=== PATIENT | male | born 1990 | race Caucasian/White ===

== ENCOUNTER 2016-11-25 08:57 | Emergency (ER) | payer BC, OTHER ==
[~2016-11-25] VITALS: Ht 182.9 cm; Wt 97.5 kg
[2016-11-25] MEDS ORDERED: SIME125T50 PO (09:39)
[2016-11-25] MEDS ORDERED: AMPH20TA2 PO (09:39)
--- NOTE | 2016-11-25 11:04 | ED Neck-Back Pain/Injury ---
General Chief Complaint: Head/Cervical Problems Stated Complaint: NECK PAIN Nursing Triage Note: PT CO OF NECK PAIN, PT STATES HAS HAD STIFF NECK FOR A FEW DAYS, JUMPED OFF TRUCK AND FELT LIKE GOT WHIPLASH, PT WEARING SOFT C-COLLAR STATES BOUGHT D/T NECK PAIN Nursing Sepsis Screen: No Definite Risk Source of Information: Patient Exam Limitations: No Limitations History of Present Illness Time Seen by Provider: 10:59 Initial Comments The patient is a 25-year-old white male who reports that he had the sensation of a stiff neck particularly to turning of the head. This began several days ago he then later jumped down out of the bed of a pickup and felt that he had a whiplash kind of movement of his neck. This caused the acute and bothersome tingling in the arms and legs. He noted this tingling sensation in his neck and if he were to stepdown hard particularly with his left leg. The pain in the neck was most acute on the right side. He bought a neck collar over-the- counter and has found it to be helpful. He took 600 mg of ibuprofen this morning and got some relief. He is loathe to continue this as he has previously had a fundoplication for GERD and was told by the surgeon to avoid NSAIDs. There is no previous history of neck pain or previous injury Location: C-Spine, Paraspinous Muscles Timing/Duration: 3-4 Days Severity: Moderate Pain/Injury Location: Lower Extremity, Upper Extremity Method of Injury: Unknown Allergies and Home Medications Allergies Coded Allergies: No Known Drug Allergies (Unverified , 11/25/16) Home Medications Dextroamphetamine/Amphetamine 20 Mg Tablet, 20 MG PO DAILY, (Reported) Simethicone 125 Mg Tab.chew, 125 MG PO, (Reported) Constitutional: see HPI EENTM: no symptoms reported Respiratory: no symptoms reported Cardiovascular: no symptoms reported Gastrointestinal: no symptoms reported Genitourinary: no symptoms reported Musculoskeletal: no symptoms reported Psychiatric/Neurological: See HPI Past Pafrdjf-Rzmvjy-Lvoeso Hx Patient Social History Alcohol Use: Denies Use Recreational Drug Use: No Smoking Status: Never a Smoker Recent Foreign Travel: No Contact w/Someone Who Travel: No Recent Infectious Disease Expo: No Recent Hopitalizations: No Physical Exam Vital Signs Vital Sign - Last 12Hours 11/25/16 09:20 Temp 97.4 Pulse 71 Resp 18 B/P (MAP) 130/81 Pulse Ox 99 Capillary Refill : Less Than 3 Seconds General Appearance: Mild Distress HEENT: Normal ENT Inspection Neck: Tender Lateral (right) Cardiovascular: Regular Rate, Rhythm, No Edema, No Gallop, No JVD, No Murmur, Normal Peripheral Pulses Respiratory: Chest Non Tender, Lungs Clear, Normal Breath Sounds, No Accessory Muscle Use, No Respiratory Distress, Accessory Muscle Use Gastrointestinal: Normal Bowel Sounds, No Organomegaly, No Pulsatile Mass, Non Tender, Soft Extremity: Normal Capillary Refill, Normal Inspection, Normal Range of Motion, Non Tender, No Calf Tenderness, No Pedal Edema, Calf Tenderness Neurologic/Psychiatric: Alert, Oriented x3, No Motor/Sensory Deficits, Normal Mood/Affect, shift mechanic II-XII Norm as Tested, Abnormal Cerebellar Tests, Other Skin: Normal Color, Warm/Dry, Cool, Cyanosis Lymphatic: No Adenopathy, Axilla Node Tender (L), Axilla Node Tender (R) Progress/Results/Core Measures Results/Orders Vital Signs/I&O Vital Sign - Last 12Hours 11/25/16 09:20 Temp 97.4 Pulse 71 Resp 18 B/P (MAP) 130/81 Pulse Ox 99 Blood Pressure Mean: 97 Departure Impression Impression: Primary Impression: cervical radiculopathy Disposition: HOME, SELF-CARE Condition: Stable/Unchanged Departure-Patient Inst. Decision time for Depature: 11:04 Referrals: NO,LOCAL PHYSICIAN (PCP) Primary Care Physician Add. Discharge Instructions: All discharge instructions reviewed with patient and/or family. Voiced understanding. Sleep with head in neutral position as demonstrated. Continue use of collar. Use heat 3 times a day. If no improvement by Saturday SEE local physician. If increasing symptoms return to emergency room. Take ibuprofen 600 mg 3 times a day for a few days Take Flexeril as directed. Scripts [fLEXERIL] No Conflict Check 10 MG TWICE A DAY, #20 Prov: NALLELY PYLE MD 11/25/16 NALLELY PYLE MD Nov 25, 2016 11:04
[2016-11-25] MEDS ORDERED: fLEXERIL (11:08)
[2016-11-25] MEDS ORDERED: methylPREDNISolone 125 MG (Solu-MEDROL) VIAL IM ONE (11:15)
[2016-11-25 11:36] VITALS: BP 130/81
== END 2016-11-25 11:40 | disposition home or self-care (01) ==
LOC: EDUNIT# 08:57 → ER 08:59
DX: M54.12 Radiculopathy, cervical region (principal)
CPT/HCPCS: 96372; 99284

== ENCOUNTER → 2018-08-25 | Outpatient (CLI) | payer OTHER ==
[~2018-08-25] MED LIST: AMPH20TA2 PO; SIME125T50 PO; fLEXERIL
--- NOTE | 2018-08-25 09:34 | Diagnostic Imaging Report ---
INDICATION: Neck pain with left radiculopathy Cervical spine AP and lateral views of the cervical spine show normal vertebral body height and alignment. Disc spaces are normal. There is no prevertebral soft tissue swelling. IMPRESSION: Negative cervical spine Dictated by: Dictated on workstation # [id number]
== END ==
LOC: RAD 08:35
PROVIDERS: ATTEND Nurse Practitioner
DX: M50.10 Cervical disc disorder with radiculopathy, unspecified cervical region (principal)
CPT/HCPCS: 72040

== ENCOUNTER → 2018-10-16 | Outpatient (CLI) | payer OTHER ==
--- NOTE | 2018-10-16 14:45 | Diagnostic Imaging Report ---
EXAMINATION: Left tibia and fibula at 1:23 p.m. INDICATION: Leg pain. FINDINGS: AP and lateral views were obtained. There are no prior studies available for comparison. There is no fracture, dislocation or acute bony abnormality evident. The knee and ankle joints are fairly well-maintained. The soft tissues are unremarkable. IMPRESSION: There is no evidence for an acute bony abnormality. Dictated by: Dictated on workstation # [id number]
== END ==
LOC: RAD 13:09
PROVIDERS: ATTEND Nurse Practitioner
DX: M79.662 Pain in left lower leg (principal)
CPT/HCPCS: 73590

== ENCOUNTER → 2018-12-12 | Outpatient (CLI) | payer OTHER ==
--- NOTE | 2018-12-12 08:09 | Diagnostic Imaging Report ---
PROCEDURE: CT chest without contrast. TECHNIQUE: Multiple contiguous axial images were obtained through the chest without the use of intravenous contrast. Auto Exposure Controls were utilized during the CT exam to meet ALARA standards for radiation dose reduction. INDICATION: Followup pulmonary nodule. Currently asymptomatic. COMPARISON: None provided. FINDINGS: The heart size is within normal limits. No pericardial effusion is present. There is no mediastinal, hilar, or axillary lymphadenopathy. The lungs demonstrate no pulmonary nodules or masses. There are no focal areas of consolidation. No pneumothoraces are present. No central endobronchial obstructing lesions are identified. There are no pleural effusions. The osseous structures demonstrate no acute abnormalities. Bilateral gynecomastia is noted. Limited views of the upper abdominal structures demonstrate no acute abnormalities. Both adrenal glands are unremarkable. IMPRESSION: 1. No pulmonary nodules, focal consolidation, or lymphadenopathy in the chest. Dictated by: Dictated on workstation # [id number]
== END ==
LOC: RAD 07:33
PROVIDERS: ATTEND Nurse Practitioner
DX: Z01.89 Encounter for other specified special examinations (principal); R91.1 Solitary pulmonary nodule
CPT/HCPCS: 71250

== ENCOUNTER 2019-01-07 20:47 | Outpatient (CLI) | payer OTHER | END 2019-01-08 06:54 | disposition home or self-care (01) | LOC: SLEEP 20:47 | PROVIDERS: ATTEND Otolaryngology Otolaryngology/Facial Plastic Surgery | DX: G47.33 Obstructive sleep apnea (adult) (pediatric) (principal) | CPT/HCPCS: 95810 ==

== ENCOUNTER 2019-09-08 21:28 | Emergency (ER) | payer OTHER ==
[~2019-09-08] VITALS: Ht 182.9 cm; Wt 109.1 kg
[2019-09-08 21:35] VITALS: BP 142/93
--- OUTSIDE RECORDS SUMMARY | 2019-09-08 21:57 | XMS REPORT | Clinical Summary ---
Author Author [facility] Address Unknown Phone Unavailable Care Team Providers Care Restaurant Team Member Name Role Phone PCP Unavailable Allergies Not on File Medications Not on file Active Problems Not on file Social History Date Tobacco Use Types Packs/Day Years Used Never Assessed Sex Assigned at Date Recorded Not on file Industry Job Start Date Occupation Not on file Not on file Not on file Travel End Travel History Travel Start No recent travel history available. Last Filed Vital Signs Not on file Plan of Treatment Health Maintenance Due Date Last Done Comments Varicella Vaccines (1 of 1989 2 - 2-dose childhood series) DTaP,Tdap,and Td Vaccines 01/01/2008 (1 - Tdap) MMR Vaccines-Adult 01/01/2008 Influenza Vaccine (Season 01/05/2020 Ended) Pneumo-Vaccine: Peds (0-5 Aged Out No longer el igible based on patient's age to Yrs) & At-Risk Patients complete this topic (6-64 Yrs) Results Not on filefrom Last 3 Months
--- OUTSIDE RECORDS SUMMARY | 2019-09-08 21:57 | XMS REPORT | Continuity of Care Document ---
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 [employer] ESOPHAGEAL REFLUX [facility] [employer] Medical Medications No Data Provided for This Section Allergies, Adverse Reactions, Alerts No Known Medication Allergies Immunizations No Data Provided for This Section Results No Data Provided for This Section Pathology Reports No Data Provided for This Section Diagnostic Reports Report Value Date Source XR Sinus Min 3V [address] [address] Radiology Reports CPT Codes; 42556 CDM Codes: 1533165 (XR Sinus Min 3V) Reason for exam: DEVIATED SEPTUM Report SINUS SERIES, 3 views CLINICAL DATA: Congestion. Prior septal surgery. FINDINGS: The paranasal sinuses are well aerated. No mucosal thickening or fluid levels are seen. The nasal septum remains midline. IMPRESSION: Negative study. Dictating Moshe Alvarado Dictated 12/25/2013 10:28 Signing Moshe Alvarado Location [id number] Final Dictated by: MOSHE NICHOLAS MD Signed by: MOSHE NICHOLAS MD 12/25/13 10:29 Court Commissioner: SOREN 12/25/13 10:29 LUZMARIA YORK [id number] 12/25/2013 [facility] R2G Consultation Notes No Data Provided for This Section Discharge Summaries No Data Provided for This Section History and Physicals No Data Provided for This Section Vital Signs No Data Provided for This Section Encounters Location Location Details Encounter Type Encounter Number Reason For Visit Attending Provider ADM Date DC Date Status Source [id number] O [id number] DEVIATED SEPTUM 12/25/2013 12/25/2013 [facility] [place] [facility] Procedures No Data Provided for This Section Plan of Care No Data Provided for This Section Social History No Data Provided for This Section Assessment and Plan No Data Provided for This Section Family History No Data Provided for This Section Advance Directives No Data Provided for This Section Functional Status No Data Provided for This Section
--- OUTSIDE RECORDS SUMMARY | 2019-09-08 21:57 | XMS REPORT ---
Author Author [employer] [facility] [employer] [facility] [employer] Address [address] [address] Care Team Providers Care Corporate Strategy Intern Name Role Phone NALLELY PYLE MD Unavailable Unavailable JOHN MALIK DO Unavailable Unavailable PAYAL VALENCIA DIPPER CLOCK AND WATCH HANDS-MANAGER OF CUSTOMER BILLING Unavailable Unavailable NALLELY PYLE MD Unavailable Unavailable NO, LOCAL PHYSICIAN PCP Unavailable Unavailable Unavailable LUIS THOMAS MD Unavailable Unavailable JOHN MALIK DO Unavailable Unavailable Unavailable Unavailable Unavailable Unavailable Unavailable Unavailable Allergies Normalized Allergy Reported Date of Reaction(s) Care Provider Facility Allergy Type classification allergen Allergy Onset DA (14 Unclassified No Known Drug 11-25-2016 - no information JOHN MALIK DO Not Available sources.) Allergies (19093) Medications Medication Ingredient Drug Dose Dates Status Sig Sig Care Class(es) (Normalized) (Original) Provid er amphetamine Amphetamine Central 20 mg Complete take 1 Dextroamph et (no aspartate 5 aspartate / Nervous d tablet by amine/Amphe t phone) mg / Amphetamine System mouth once amine amphetamine Sulfate / Stimulant daily (Adderall 20 sulfate 5 Dextroamphe Mg Tablet) mg / tamine 20 Mg Tablet dextroamphe saccharate 20 Mg ORAL tamine / Daily saccharate Dextroamphe 5 mg / tamine dextroamphe Sulfate tamine sulfate 5 mg oral tablet (1 source.) no cyclobenzap Muscle 10 mg 11-26-19 Complete no Flexer il 10 Nallely information rine Relaxant 17 d information Mg NOT K (1 source.) APPLICABLE [place] Twice A Day (no 20 11/25/16 phone) no Simethicone no 125 mg Complete no Simethicone (n o information 125 Mg information d information 125 Mg phone) (1 source.) Tab.chew Tab.chew 125 Mg ORAL Problems Active Problems Problem Normalized Date Last Normalized Normalized Provider Fa cility Classification Problem(s) Recorded Problem Problem Sta tus Duration Spondylosis; Cervical disc Chronic Active PAYAL BOGE [facility] intervertebral disorder with [facility] disc radiculopathy, Hospital - disorders; unspecified [place] other back cervical (54785) problems (1 region source.) Spondylosis; Cervicalgia Episodic Active NALLELY ODGERS Not Available intervertebral Translations: MD (53506) disc [ disorders; RADICULOPATHY, other back CERVICAL problems (20 REGION, sources.) CERVICAL DISC DISORDER W RADICULOPATHY, , RADICULOPATHY, CERVICAL REGION] Residual Obstructive Chronic Active LUIS THOMAS [facility] a codes; sleep apnea MD [place] unclassified (adult) Hospital - (4 sources.) (pediatric) [place] ([address]) Other Pain in left Episodic Active PAYAL BOGE [facility] connective lower leg [facility] tissue disease Hospital - (3 sources.) [place] ([address]) Residual Procedure and Episodic Active JOHN KING , DO [facility] Via codes; treatment not [facility] unclassified carried out Hospital - (6 sources.) due to patient [place] leaving prior ([address]857) to being seen by health care provider Other lower Solitary Episodic Active PAYAL BOGE [facility] respiratory pulmonary [facility] disease (7 nodule Hospital - sources.) [place] ([address]) Nausea and Vomiting, Episodic Active JOHN KING , DO [facility] Vi a vomiting (4 unspecified [facility] sources.) Hospital - [place] ([address]) Past or Other Problems Problem Normalized Date Last Normalized Normalized Provider Fa ferty Classification Problem(s) Recorded Problem Problem Sta tus Duration Nausea and Vomiting, no information no information JOHN KING , DO Not Available vomiting (8 unspecified (34049) sources.) Procedures Procedure Normalized Procedure Procedure Result Performer Facility Date 12-12-2018 CT of chest without no information PAYAL GARNER-FN Thais VALENCIA [facility] ([address]) Immunizations Normalized Immunization Date Notes Care Provider Facili ty Immunization influenza, seasonal, 02-16-2019 no information no name Nilson krueger [facility] injectable [facility] (77189) Vaccination no information LOCAL NO [place] Via Translations: [ [facility] vaccine] (480[address]) Results The data below is from unstructured sourcesNo relevant diagnostic test, laboratory data and/or discharge summary information available. Vital Signs The data below is from unstructured sourcesNo vital sign information available. Interventions No Information Plan of Treatment The data below is from unstructured sources Discharge Date 01/08/19 6:54am Prescriptions See Medication Section Goals No Information Social History Normalized Code Original Code Date Value no information no information no information Unknown if ever smoked Functional Status The data below is from unstructured sourcesNo functional status information available. Mental Status No Information Encounters Encounter Normalized Encounter Encounter Diagnosis Care Provi jil Organization Date Type 11-25-2016 Emergency department no information no name no organization name - patient visit 11-25-2016 11-25-2016 Emergency department no information NALLELY PYLE MD (no [facility] - patient visit phone) [facility] 11-25-2016 (no phone) 01-24-2016 Emergency department no information no name no organization name patient visit 01-24-2016 Emergency department no information no name no organization name patient visit 11-25-2016 Patient encounter no information no name no or ganization name 01-07-2019 Patient encounter no information LIUS THOMAS Wo rk no organization name - procedure Phone: 01-08-2019 01-07-2019 Patient encounter no information LUIS THOMAS MD (no [facility] - procedure phone) [facility] 01-08-2019 (no phone) 12-12-2018 Patient encounter no information PAYAL FREEMANP ERIK no organization name procedure 12-12-2018 Patient encounter no information no name no or ganization name procedure 10-16-2018 Patient encounter no information no name no or ganization name procedure 08-25-2018 Patient encounter no information no name no or ganization name procedure 08-25-2018 Patient encounter no information no name no or ganization name procedure no information Encounter for other no name no organiz ation name specified special examinations Medical Equipment No Information Payers Normalized Payer Value Private Health Insurance [id number] NEGATED [id number] Private Health Insurance Unknown [id number] ([id number]) Advance Directives Directive Response Recor ded Date/Time Advance Directives No 9:20am Organ Donor Yes 11/25/16 9:20am Discharge Instructions No hospital discharge instruction information available. Additional Source Comments This clinical document has been generated using [employer] software that has been certified by the Office of the National Coordinator for Health Information Technology (ONC 15.99.04.3023.Diam.31.00.0.480673) and the National Committee for [employer] Cook (NCQA, as an eMeasure certified technology). FOR RECORDS PERTAINING TO PATIENTS WHO ARE OR HAVE BEEN ENROLLED IN A CHEMICAL D EPENDENCY/SUBSTANCE ABUSE PROGRAM, SOME INFORMATION MAY BE OMITTED. This clinica l summary was aggregated from multiple sources. Caution should be exercised in using it in the provision of clinical care. This summary normalizes information from multiple sources, and as a consequence, information in this document may ma terially change the coding, format and clinical context of patient data. In dennis tion, data may be omitted in some cases. CLINICAL DECISIONS SHOULD BE BASED ON T HE PRIMARY CLINICAL RECORDS. [employer]. provides no warranty or guara ntee of the accuracy or completeness of information in this document.The followi information is based on time limited clinical information
--- OUTSIDE RECORDS SUMMARY | 2019-09-08 21:57 | XMS REPORT | Continuity of Care Document ---
Author Organization Unknown Address Unknown Phone Unavailable Allergies Active Description Code Type Severity Reaction Onset Reported/Identified Relationship to Patient Clinical Status Yes No Known Drug Allergies [id number] Drug Allergy Unknown N/A 11/25/2016 Medications There is no data. Problems Date Dx Coded Attending Type Code Diagnosis Diagnosed By 01/25/2016 JOHN MALIK DO Ot R11.10 VOMITING, UNSPECIFIED 01/25/2016 JOHN MALIK DO Ot Z53.21 PROC/TRTMT NOT CRD OUT D/T PT LV BEF SEE 01/25/2016 JOHN MALIK DO Ot R11.10 VOMITING, UNSPECIFIED 01/25/2016 ROGER MALIK DOA Basilio Ot Z53.21 PROC/TRTMT NOT CRD OUT D/T PT LV BEF SEE 11/25/2016 JOHN MALIK DO Ot R11.10 VOMITING, UNSPECIFIED 11/25/2016 ROGER MALIK DOA Basilio Ot Z53.21 PROC/TRTMT NOT CRD OUT D/T PT LV BEF SEE 11/25/2016 NALLELY PYLE MD Ot M54.12 RADICULOPATHY, CERVICAL REGION 11/25/2016 NALLELY PYLE MD Ot M54 .2 CERVICALGIA 11/25/2016 JOHN MALIK DO Ot R11.10 VOMITING, UNSPECIFIED 11/25/2016 ROGER MALIK DOA Basilio Ot Z53.21 PROC/TRTMT NOT CRD OUT D/T PT LV BEF SEE 11/26/2016 JOHN MALIK DO Ot R11.10 VOMITING, UNSPECIFIED 11/26/2016 ROGER MALIK DOA Basilio Ot Z53.21 PROC/TRTMT NOT CRD OUT D/T PT LV BEF SEE 11/27/2016 NALLELY PYLE MD Ot M54.12 RADICULOPATHY, CERVICAL REGION 11/27/2016 NALLELY PYLE MD Ot M54 .2 CERVICALGIA 10/25/2017 NALLELY PYLE MD Ot M54.12 RADICULOPATHY, CERVICAL REGION 10/25/2017 NALLELY PYLE MD Ot M54 .2 CERVICALGIA 08/25/2018 ROGER MALIK DOSha [place] Ot R11.10 VOMITING, UNSPECIFIED 08/25/2018 ROGER MALIK DOA K Ot Z53.21 PROC/TRTMT NOT CRD OUT D/T PT LV BEF SEE 08/31/2018 PAYAL VALENCIA CENTRIFUGAL CASTING MACHINE OPERATOR-SENIOR NET DEVELOPER ARCHITECT Ot M50.10 CERVICAL DISC DISORDER W RADICULOPATHY, 09/18/2018 NALLELY PYLE MD Ot M54.12 RADICULOPATHY, CERVICAL REGION 09/18/2018 NALLELY PYLE MD Ot M54 .2 CERVICALGIA 10/19/2018 PAYAL VALENCIA CENTRIFUGAL CASTING MACHINE OPERATOR-SENIOR NET DEVELOPER ARCHITECT Ot M79.662 PAIN IN LEFT LOWER LEG 11/20/2018 NALLELY PYLE MD Ot M54.12 RADICULOPATHY, CERVICAL REGION 11/20/2018 NALLELY PYLE MD Ot M54 .2 CERVICALGIA 12/17/2018 PAYAL VALENCIA CENTRIFUGAL CASTING MACHINE OPERATOR-SENIOR NET DEVELOPER ARCHITECT Ot R91.1 SOLITARY PULMONARY NODULE 12/17/2018 PAYAL VALENCIA CENTRIFUGAL CASTING MACHINE OPERATOR-SENIOR NET DEVELOPER ARCHITECT Ot Z01.89 ENCOUNTER FOR OTHER SPECIFIED SPECIAL EX 12/19/2018 PAYAL VALENCIA CENTRIFUGAL CASTING MACHINE OPERATOR-SENIOR NET DEVELOPER ARCHITECT Ot R91.1 SOLITARY PULMONARY NODULE 12/19/2018 PAYAL VALENCIA CENTRIFUGAL CASTING MACHINE OPERATOR-SENIOR NET DEVELOPER ARCHITECT Ot Z01.89 ENCOUNTER FOR OTHER SPECIFIED SPECIAL EX 01/08/2019 LUIS THOMAS MD Ot G47.33 OBSTRUCTIVE SLEEP APNEA (ADULT) (PEDIATR 01/09/2019 LUIS THOMAS MD Ot G47.33 OBSTRUCTIVE SLEEP APNEA (ADULT) (PEDIATR 04/30/2019 PAYAL VALENCIA CENTRIFUGAL CASTING MACHINE OPERATOR-SENIOR NET DEVELOPER ARCHITECT Ot M79.662 PAIN IN LEFT LOWER LEG 05/26/2019 JOHN MALIK DO Basilio Ot R11.10 VOMITING, UNSPECIFIED 05/26/2019 KING ARZOLA JOHN K Ot Z53.21 PROC/TRTMT NOT CRD OUT D/T PT LV BEF SEE 05/26/2019 PAYAL VALENCIA CENTRIFUGAL CASTING MACHINE OPERATOR-SENIOR NET DEVELOPER ARCHITECT Ot R91.1 SOLITARY PULMONARY NODULE 05/26/2019 PAYAL VALENCIA CENTRIFUGAL CASTING MACHINE OPERATOR-SENIOR NET DEVELOPER ARCHITECT Ot Z01.89 ENCOUNTER FOR OTHER SPECIFIED SPECIAL EX 05/26/2019 PAYAL VALENCIA CENTRIFUGAL CASTING MACHINE OPERATOR-SENIOR NET DEVELOPER ARCHITECT Ot R91.1 SOLITARY PULMONARY NODULE 05/26/2019 PAYAL VALENCIA CENTRIFUGAL CASTING MACHINE OPERATOR-SENIOR NET DEVELOPER ARCHITECT Ot Z01.89 ENCOUNTER FOR OTHER SPECIFIED SPECIAL EX 05/27/2019 PAYAL VALENCIA CENTRIFUGAL CASTING MACHINE OPERATOR-SENIOR NET DEVELOPER ARCHITECT Ot R91.1 SOLITARY PULMONARY NODULE 05/27/2019 PAYAL VALENCIA CENTRIFUGAL CASTING MACHINE OPERATOR-SENIOR NET DEVELOPER ARCHITECT Ot Z01.89 ENCOUNTER FOR OTHER SPECIFIED SPECIAL EX 05/27/2019 KING DO, JOHN K Ot R11.10 VOMITING, UNSPECIFIED 05/27/2019 KING DO, JOHN K Ot Z53.21 PROC/TRTMT NOT CRD OUT D/T PT LV BEF SEE 05/27/2019 PAYAL VALENCIA CENTRIFUGAL CASTING MACHINE OPERATOR-SENIOR NET DEVELOPER ARCHITECT Ot M50.10 CERVICAL DISC DISORDER W RADICULOPATHY, 05/27/2019 PAYAL VALENCIA CENTRIFUGAL CASTING MACHINE OPERATOR-SENIOR NET DEVELOPER ARCHITECT Ot M79.662 PAIN IN LEFT LOWER LEG 05/27/2019 PAYAL VALENCIA CENTRIFUGAL CASTING MACHINE OPERATOR-SENIOR NET DEVELOPER ARCHITECT Ot R91.1 SOLITARY PULMONARY NODULE 05/27/2019 PAYAL VALENCIA CENTRIFUGAL CASTING MACHINE OPERATOR-SENIOR NET DEVELOPER ARCHITECT Ot Z01.89 ENCOUNTER FOR OTHER SPECIFIED SPECIAL EX 05/27/2019 PAYAL VALENCIA CENTRIFUGAL CASTING MACHINE OPERATOR-SENIOR NET DEVELOPER ARCHITECT Ot R91.1 SOLITARY PULMONARY NODULE 05/27/2019 PAYAL VALENCIA CENTRIFUGAL CASTING MACHINE OPERATOR-SENIOR NET DEVELOPER ARCHITECT Ot Z01.89 ENCOUNTER FOR OTHER SPECIFIED SPECIAL EX Procedures There is no data. Results There is no data. Encounters ACCT No. Visit Date/Time Discharge Status Pt. Type Provider Facility Loc./Unit Complaint [id number] 01/07/2019 20:47:00 019 06:54:00 DIS Outpatient WILLIAM DONALD, LUIS Plascencia [facility] SLEEP G47.33 ALENA [id number] 12/12/2018 07:33:00 019 23:59:59 CLS Outpatient PAYAL VALENCIA CENTRIFUGAL CASTING MACHINE OPERATOR-SENIOR NET DEVELOPER ARCHITECT [facility] RAD PULMONARY NODUL E [id number] 10/16/2018 13:09:00 019 23:59:59 CLS Outpatient PAYAL VALENCIA CENTRIFUGAL CASTING MACHINE OPERATOR-SENIOR NET DEVELOPER ARCHITECT [facility] RAD LEFT ANTERIOR L OWER LEG PAIN [id number] 08/25/2018 08:35:00 019 23:59:59 CLS Outpatient ERIKPYAAL CENTRIFUGAL CASTING MACHINE OPERATOR-SENIOR NET DEVELOPER ARCHITECT [facility] RAD M50.90 [id number] 11/25/2016 08:59:00 017 11:40:00 DIS Emergency LASHANDA DONALD, NALLELY [place] [facility] ER NECK PAIN [id number] 01/24/2016 19:55:00 016 23:59:59 CLS Emergency JOHN MALIK DO [facility] ER VOMITING/ABD PAIN [id number] 05/26/2019 07:16:00 Document Registration [id number] 05/26/2019 07:16:00 Document Registration [id number] 05/26/2019 07:16:00 Document Registration [id number] 05/26/2019 07:16:00 Document Registration [id number] 05/26/2019 07:16:00 Document Registration
--- NOTE | 2019-09-08 22:25 | NUR ---
X9 sutures placed by Chip Yoon APRN. Addendum: 09/08/19 at 2225 by COLEMAN 4-0 Prolene.
--- NOTE | 2019-09-08 22:28 | ED Upper Extremity ---
General Chief Complaint: Laceration Stated Complaint: L ARM LAC Nursing Triage Note: Pt amb to triage with c/o laceration to L upper arm. 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 Pt arrives with pressure drsg to L upper arm with controlled bleeding. Superficial abrasions noted to Ema cantu et pt states, "I'm not worried about those, that happened earlier today." Pt reports to be current on tetanus vaccine. A&OX4. Nursing Sepsis Screen: No Definite Risk Source: patient Exam Limitations: no limitations History of Present Illness Date Seen by Provider: September 08, 2019 Time Seen by Provider: 22:00 Initial Comments Lacerations to posterior left upper arm after "putting it thru my truck window" out of anger. Tetanus is up to date. Onset: just prior to arrival Severity: moderate Pain/Injury Location: right arm Method of Injury: direct blow Modifying Factors: Worse With Movement Allergies and Home Medications Allergies Coded Allergies: No Known Drug Allergies (Unverified , 11/25/16) Home Medications Dextroamphetamine/Amphetamine 20 Mg Tablet, 20 MG PO DAILY, (Reported) [fLEXERIL] , 10 MG TWICE A DAY Prescribed by: NALLELY PYLE on 11/25/16 1108 Patient Home Medication List Home Medication List Reviewed: Yes Review of Systems Constitutional: see HPI EENTM: see HPI Genitourinary: no symptoms reported Musculoskeletal: no symptoms reported Skin: no symptoms reported Psychiatric/Neurological: No Symptoms Reported Past Tymhtac-Aldnju-Nkocdo Hx Patient Social History Alcohol Use: Regular Use Number of Drinks Today: 0 Alcohol Beverage of Choice: Whiskey Recreational Drug Use: No Smoking Status: Never a Smoker 2nd Hand Smoke Exposure: No Recent Foreign Travel: No Contact w/Someone Who Travel: No Recent Infectious Disease Expo: No Recent Hopitalizations: No Past Medical History Surgeries: Yes (Fundopliction ) Respiratory: Yes Sleep Apnea Currently Using CPAP: Yes Currently Using BIPAP: No Cardiac: No Neurological: No Genitourinary: No Gastrointestinal: No Musculoskeletal: No Endocrine: No HEENT: No Cancer: No Psychosocial: Yes PTSD Integumentary: No Physical Exam Vital Signs Vital Signs - First Documented 09/08/19 21:35 Temp 36.9 Pulse 76 Resp 18 B/P (MAP) 142/93 (109) Pulse Ox 99 O2 Delivery Room Air Capillary Refill : Less Than 3 Seconds Height, Weight, BMI Height: 6'0" Weight: 215lbs. oz. 97.412560vw; 32.00 BMI Method:Stated General Appearance: WD/WN, no apparent distress HEENT: PERRL/EOMI, normal ENT inspection Neck: non-tender, full range of motion Respiratory: no respiratory distress, no accessory muscle use Gastrointestinal: normal bowel sounds, non tender, soft Shoulder: normal inspection, non-tender Elbow/Forearm: Left (multiple small lacerations to posterior biceps area. ONe down to subq tissues. this one measured 3 cm and and was anesthetized with 3ml lidocaine without epi. Piece of glass was irrigated out of this. Closed with 7 simple interrupted sutures. More distal, a shallower 1cm laceration was anestheiized and closed with 2 simple interrupted sutures. ) Hand: normal inspection, non-tender Neurologic/Tendon: normal sensation, normal motor functions, other (normal sensation distally) Neurologic/Psychiatric: alert, normal mood/affect, oriented x 3 Skin: normal color, warm/dry Progress/Results/Core Measures Results/Orders Vital Signs/I&O 09/08/19 21:35 Temp 36.9 Pulse 76 Resp 18 B/P (MAP) 142/93 (109) Pulse Ox 99 O2 Delivery Room Air Blood Pressure Mean: 109 Departure Impression Primary Impression: Laceration of arm Qualified Codes: S41.112A - Laceration without foreign body of left upper arm, initial encounter Disposition: 01 HOME, SELF-CARE Condition: Stable Departure-Patient Inst. Decision time for Depature: 22:27 Referrals: NO,LOCAL PHYSICIAN (PCP/Family) Primary Care Physician Patient Instructions: Laceration Repair With Stitches (DC) Add. Discharge Instructions: keep it clean dry and covered tonight. Tomorrow night you may shower letting water run over this. Keep it covered when doing any activity that could get it dirty. Antibiotics as directed. Return to ER in 7-10 days for stitch removal . All discharge instructions reviewed with patient and/or family. Voiced understanding. Scripts Cephalexin (Keflex) 500 Mg Capsule 500 MG PO QID, #20 CAP Prov: PANDA SCHWAB APRN 09/08/19 PANDA SCHWAB APRN September 08, 2019 22:28
[2019-09-08] MEDS ORDERED: CEPH-507 PO (22:29)
== END 2019-09-08 22:30 | disposition home or self-care (01) ==
LOC: EDUNIT# 21:28 → ER 21:30
DX: S41.112A Laceration without foreign body of left upper arm, initial encounter (principal); G47.30 Sleep apnea, unspecified; Z99.89 Dependence on other enabling machines and devices; W25.XXXA Contact with sharp glass, initial encounter
CPT/HCPCS: 12032

== ENCOUNTER → 2019-12-03 | Outpatient (CLI) | payer OTHER ==
[~2019-12-03] MED LIST changes: +CATHETER FLUSH 10 ML SYR IV PRN; +CEPH-507 PO; +HOLD METFORMIN - RECEIVED CONTRAST 20 ML VIAL IV SCH; +IOHEXOL 350 MG/ML 100 ML (OMNIPAQUE 350) VIAL IV ONE; +NS 100 ML (IVPB) BAG IV ONE
--- NOTE | 2019-12-03 08:44 | Diagnostic Imaging Report ---
EXAMINATION: CT Abdomen Pelvis with and without intravenous contrast. TECHNIQUE: Precontrast acquisitions were acquired through the abdomen and pelvis. Multiple contiguous axial images were obtained through the abdomen and pelvis after the administration of intravenous contrast. All CT scans use one or more of the following dose optimizing techniques: automated exposure control, MA and/or KvP adjustment based on a patient size and exam type, or iterative reconstruction. HISTORY: Upper abdominal pain. COMPARISON: None available. FINDINGS: Limited views of the lower thorax are unremarkable. The liver is normal without focal lesion. There is no biliary ductal dilation. Gallbladder is normal. Pancreas is normal. Spleen is normal. Adrenal glands are normal. The kidneys are normal. There is no hydronephrosis. Urinary bladder is normal. Visualized bowel is normal in caliber without obstruction or inflammation. There are postsurgical changes of fundoplication. Appendix is normal. No free fluid or air. No abdominal or pelvic lymphadenopathy. Aorta is normal in caliber without aneurysm. There are no suspicious osseus lesions. IMPRESSION: 1. Status post fundoplication without acute abnormality seen in the abdomen or pelvis. Dictated by: Dictated on workstation # [id number]
== END ==
LOC: RAD 07:26
PROVIDERS: ATTEND Nurse Practitioner
DX: R10.10 Upper abdominal pain, unspecified (principal)
CPT/HCPCS: 74178

== ENCOUNTER 2020-02-24 05:32 | Outpatient (RCR) | payer BC, OTHER ==
[~2020-02-24] VITALS: Ht 182 cm; Wt 113.6 kg
[~2020-02-24 05:32] MED LIST changes: -CATHETER FLUSH 10 ML SYR IV PRN; -HOLD METFORMIN - RECEIVED CONTRAST 20 ML VIAL IV SCH; -IOHEXOL 350 MG/ML 100 ML (OMNIPAQUE 350) VIAL IV ONE; +MULT-1136 PO; -NS 100 ML (IVPB) BAG IV ONE
== END 2020-02-24 10:39 | disposition home or self-care (01) ==
LOC: PREOP 05:32
PROVIDERS: ATTEND Surgery
DX: Z01.812 Encounter for preprocedural laboratory examination (principal); K21.9 Gastro-esophageal reflux disease without esophagitis; Z20.828 Contact with and (suspected) exposure to other viral communicable diseases
CPT/HCPCS: 87635

== ENCOUNTER 2020-02-26 09:57 | Day surgery (SDC) | payer OTHER ==
[~2020-02-26] VITALS: Ht 182 cm; Wt 113.6 kg
[2020-02-26] MEDS ORDERED: LACTATED RINGERS 1,000 ML IV STA (09:59)
[2020-02-26] MEDS ORDERED: LACTATED RINGERS 1,000 ML IV ONE (09:59)
[2020-02-26] MEDS ORDERED: HURRICAINE EXT TUBE (BENZOCAINE) XX PRN (10:00)
[2020-02-26 10:17] VITALS: BP 137/92
--- NOTE | 2020-02-26 11:02 | Progress Note-Pre Operative ---
Pre-Operative Progress Note H&P Reviewed The H&P was reviewed, patient examined and no changes noted. Date Seen by Provider: Feb 26, 2020 Time Seen by Provider: 11: Date H&P Reviewed: Feb 26, 2020 Time H&P Reviewed: 11: Pre-Operative Diagnosis: epigastric abd pain, gerd STEWART EUCEDA DO Feb 26, 2020 11:02
[2020-02-26] MEDS ORDERED: MIDAZOLAM 2 MG/2 ML (VERSED) VIAL ONE (12:31)
[2020-02-26] MEDS ORDERED: proPOfol 200 MG/20 ML (DIPRIVAN) VIAL IV ONE (12:31)
[2020-02-26] MEDS ORDERED: HURRICAINE EXT TUBE (BENZOCAINE) ONE (12:41)
[2020-02-26 13:00] VITALS: BP 110/55
[2020-02-26 13:05] VITALS: BP 111/54
[2020-02-26 13:10] VITALS: BP_SYST 106; BP_SYST 110; BP_DIAS 56; BP_DIAS 59
[2020-02-26] MEDS ORDERED: OMEP20TA7 PO (13:23)
[2020-02-26 13:40] VITALS: BP 113/58
--- NOTE | 2020-02-26 13:54 | Anesthesia-General Post-Op ---
MAC Patient Condition Mental Status/LOC: Same as Preop Cardiovascular: Satisfactory Nausea/Vomiting: Absent Respiratory: Satisfactory Pain: Controlled Complications: Absent Post Op Complications Complications None Follow Up Care/Instructions Patient Instructions None needed. Anesthesiology Discharge Order Discharge Order Patient was seen after the procedure and he was doing well, no complaints, stable vital signs, no apparent adverse anesthesia problems. TRES PARK DO Feb 26, 2020 13:54
[2020-02-26 14:05] VITALS: BP 113/58
--- NOTE | 2020-02-26 15:38 | Discharge Inst-Simple/Standard ---
Discharge Inst-Standard Patient Instructions/Follow Up Plan of Care/Instructions/FU: 2 weeks [place] Activity as Tolerated: Yes Discharge Diet: Regular Diet STEWART EUCEDA DO Feb 26, 2020 15:38
--- NOTE | 2020-02-26 15:40 | Progress Note-Post Operative ---
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
--- NOTE | 2020-02-26 20:30 | OPERATIVE REPORT ---
DATE OF SERVICE: 02/26/2020 PREOPERATIVE DIAGNOSES: Epigastric abdominal pain, gastroesophageal reflux disease. POSTOPERATIVE DIAGNOSIS: Reactive gastropathy. PROCEDURE: EGD with biopsies. SURGEON: Stewart Ramsay DO ANESTHESIA: Per MDA. ESTIMATED BLOOD LOSS: None. COMPLICATIONS: None. INDICATIONS: The patient is a 29-year-old male with epigastric abdominal pain and GERD symptoms. He understands risks and benefits of procedure and wished to proceed with procedure. Consent was signed in the chart. DESCRIPTION OF PROCEDURE: The patient was taken to the endoscopy suite, placed in left lateral recumbent position. Timeout was performed. Scope was inserted in mouth, down the esophagus, stomach and into the duodenum without difficulty. There were no polyps, masses or ulcerations within the duodenum. Scope was slowly retracted back into stomach where it was further insufflated. Changes of reactive gastropathy were present in the stomach. Biopsy of the antrum was obtained. Scope was retroflexed noting evidence of previous fundoplication. The scope was then returned to its normal position, slowly withdrawn to the distal esophagus. Biopsy of the GE junction was obtained. No polyps, masses or ulcerations. Scope was then slowly retracted back until completely removed. The patient tolerated procedure well without any complications, taken to recovery room in stable condition. RECOMMENDATIONS: The patient will follow up on biopsies in 2 weeks. The patient will be on omeprazole 20 mg daily. Further recommendations pending biopsy results and symptoms. Job ID: [id number] DocumentID: [id number] Dictated Date: 02/26/2020 15:44:20 Chief Strategy Officer Date: 02/26/2020 20:28:46 Dictated By: STEWART RAMSAY DO
== END 2020-02-26 14:05 | disposition home or self-care (01) ==
LOC: ENDO 09:57
PROVIDERS: ATTEND Surgery
DX: K21.00 Gastro-esophageal reflux disease with esophagitis, without bleeding (principal); K31.89 Other diseases of stomach and duodenum; G47.33 Obstructive sleep apnea (adult) (pediatric); F41.9 Anxiety disorder, unspecified; F43.10 Post-traumatic stress disorder, unspecified; Z79.899 Other long term (current) drug therapy; Z98.890 Other specified postprocedural states; Z80.9 Family history of malignant neoplasm, unspecified; Z83.3 Family history of diabetes mellitus; Z82.49 Family history of ischemic heart disease and other diseases of the circulatory system

== ENCOUNTER 2020-09-01 08:26 | Outpatient (RCR) | payer OTHER ==
[~2020-09-01 08:26] MED LIST changes: +OMEP20TA7 PO
== END 2020-11-27 | disposition home or self-care (01) ==
LOC: LAB 08:26
PROVIDERS: ATTEND Urology
DX: Z01.89 Encounter for other specified special examinations (principal)
CPT/HCPCS: 89321